=== PATIENT | female | born 1980 | race Caucasian/White ===

== ENCOUNTER 2019-07-08 13:20 | Day surgery (SDC) | payer OTHER, SELFPAY ==
[2019-07-01 07:26] VITALS: BMI 28.2
[2019-07-08] VITALS (16 sets, daily range): BP systolic 91–124; BP diastolic 46–78; PULSE 19–124; RESP 8–20; TEMP 36.2–36.8; O2SAT 97–100; BMI 27.1
--- NOTE | 2019-07-08 | DI.RAD.S_ITS ---
PROCEDURE: XR LUMBAR SPINE 2-3V INDICATIONS: L5/S1 microdiscectomy TECHNIQUE: AP and lateral intraoperative fluoroscopic views of the lumbar spine were acquired. COMPARISON: None. FINDINGS: Intraoperative fluoroscopy documents surgical instruments adjacent to the L5-S1 level of the lumbosacral spine. IMPRESSION: Intraoperative fluoroscopy documents surgical instruments adjacent to the L5-S1 level of the lumbosacral spine. Please see referring provider's operative report for procedural details. Dictated by: Ezequiel West M.D. on 07/08/2019 at 18:16 Approved by: Ezequiel West M.D. on 07/08/2019 at 18:19
[2019-07-08] MEDS: LACTATED RINGERS 1,000 ML 42 ML IV ×3 (14:32→18:33)
--- NOTE | 2019-07-08 14:52 | PM.PREOP ---
Pre-operative Note Interval Note History & Physical reviewed/Exam performed by Physician: Yes Changes to H&P: No
[2019-07-08] MEDS: CEFAZOLIN 2 GM/100 ML FROZ.PIGGY IV (15:18)
[2019-07-08] MEDS: methylPREDNISolone acet DEPO 40 MG/ML VIAL INJ (15:46)
[2019-07-08] MEDS: BUPIVACAINE 0.25% W/ EPI 30 ML VIAL INJ (15:47)
--- NOTE | 2019-07-08 15:53 | SUR.OPER ---
Prone on spine table, head in foam head support, padded chest and pelvic supports, gel pad at knees, lower legs supported by pillows; nipples, genitalia and toes free of pressure, arms secured on foam padded arm boards at <90 degrees abduction. Tape over blanket at thigh secured to table.
--- NOTE | 2019-07-08 16:36 | P.OP_ITS ---
Operative Date/Time/Diagnoses Date of procedure: 07/08/19 Time of procedure: 15:34 Pre-op diagnosis: 1. L5-S1 disc herniation 2. Lumbar radiculopathy Post-op diagnosis: same Procedure & Clinicians Procedure: 1. L5-S1 right microdiscectomy 2. Utilization of microsurgical technique and operating microscope Same procedure as scheduled: Yes Indications: Patient has been having chronic back pain and worsening lumbar radiculopathy. Patient failed multiple conservative management with worsening pain weakness and numbness in her lower extremity. Patient has been having difficulty performing activity of daily living. After discussing risks benefits of treatment options, patient elected proceed with surgery. Surgeon: Maria R Bolden Forensic Chemist: Supriya Peters'Brien Click Yes if Unassisted: No Anesthesia Type: General Operative Notes Closure Type: primary Specimen(s): none sent Estimated Blood Loss (mL): 10 Blood products transfused: none Procedure in detail: Patient was seen in the preoperative area. Risks and benefits of the surgery was discussed with the patient. Informed consent was obtained from the patient and placed in the chart. Surgical site was marked. Patient was taken to the operative room. General anesthesia was administered. Prophylactic antibiotic was given to the patient less than 30 min before the incision was made. Patient was placed into a prone position on the Rolf table. Patient's back was then prepped and draped in the sterile fashion. Time- out was performed at this time. Using AP and lateral C-arm imaging the interval between L5-S1 was identified and marked on patient's back. A 1 inch incision 1 in from midline was made on the right side. The fascia was incised in line with skin incision. Globus MARS retractors was placed inside the incision and docked onto the L5 lamina. Using microsurgical technique and operating microscope, a L5 laminotomy was performed using a Kerrison rongeur. Liagamentum flavum was resected at the site of the laminotomy. The disc space at L5-S1 was identified. Microdiscectomy was performed by incising the annulus with #11 blade. Microcurettes and pituitary was used to removed herniated disc fragments of disc from the epidural space. After the microdiskectomy was completed, the area medial lateral superior and inferior to the area of the microdiskectomy was inspected and explored using a micro curette. No other impinging structure was identified. The wound was then irrigated with sterile normal saline. 40 mg Depo-Medrol was placed into the epidural space. The deep fascia was closed with 1-0 Vicryl. The subcutaneous tissue was closed with 2-0 Vicryl. The skin was closed with 4-0 Monocryl. Patient tolerated the procedure well. There were no complications. Patient was transferred recovery room in stable condition. Complications: none Condition: stable Disposition: same day surgery Plan for aftercare: Discharge to home
[2019-07-08] MEDS: hydrOXYzine 50 MG/ML INJ 25 MG IM (16:59)
[2019-07-08] MEDS: HYDROMORPHONE 2 MG INJ 0.5 MG IV ×4 (17:02→18:11)
[2019-07-08] MEDS: LORazepam 2 MG/ML INJ 0.5 MG IV ×2 (17:17→17:36)
[2019-07-08] MEDS: MEPERIDINE 50 MG/ML INJ 25 MG IV (17:22)
[2019-07-08] MEDS: FAMOTIDINE 20 MG/50 ML PIGGYBACK 200 MG IV (17:35)
[2019-07-08] MEDS: KETOROLAC 30 MG/ML VIAL IV (18:29)
[2019-07-08] MEDS: ACETAMINOPHEN IV 1,000 MG/100 ML VIAL 400 MG IV (18:32)
[2019-07-08] MEDS: OXYCODONE IR 5 MG TABLET PO (18:42)
--- NOTE | 2019-07-08 18:43 | SUR.PHASEI ---
Late entry: PACU post op note--Patient arrived to PACU arousable by loud voice. Patient moaning complaining of pain 9/10 pain in mid low back and bilateral hips. Medicated with Fentanyl on arrival by Dr. Marcum. Pain continued. Medicated with Vistaril and Dilaudid per orders. Patient anxious and feeling pain in abdomen, possibly heartburn per patient. Medicated with Demerol and Ativan for shakes and spasm pain in back. Denied any nausea. VSS, O2 sats WNL. Dr. Bolden notified regarding patients level of pain post op. Possible admit if does not meet criteria for discharge to home. Verbal handoff report given to Elijah Del Rio, application development director UPSETTER HELPER.
--- NOTE | 2019-07-08 18:44 | SUR.PHASEI ---
Late entry - see times from doctor's documentation. Dr Bolden notified of patient's pain level 6-8 in both back and stomach. VSS, deep breathing for pain control; orders written to admit patient. Spoke with Dr. Baires regarding meds to help with pain control. See emar for meds ordered and given. 184 Patient currently visiting with as he is going to go home. patient rates pain at 6/10 in both areas. No nausea, pudding and water given prior to PO rx.
--- NOTE | 2019-07-08 18:50 | SUR.PHASEI ---
report called to LV whaley in AC. Patient currently calm, resp unlabored, not needing to deep breath, continues eating pudding. Back dressing unchanged. Skin warm and dry.
--- NOTE | 2019-07-08 18:50 | SUR.PHASEI ---
Late entry: Dr. Baires assessed patients pain level and ordered medication to treat pain, anxiety, and stomach discomfort. Patient responding slowly to pain medication treatment.
--- NOTE | 2019-07-08 19:11 | SUR.PHASEI ---
1853 to room 213. Transferred into bed with assist. facial grimace and moan present when going over bumps and upon transfer until she was repositioned into the bed. became calm when settled, spouse at bedside. Resp unlabored, skin warm and dry. Clothing bag and glasses to room with patient. SCDs on.
--- NOTE | 2019-07-08 19:26 | SUR.PHASEI ---
1748 Patient moaning intermittently, deep breathing to deal with pain. will medicate, pt. lying in position of comfort for her. Skin warm and dry, resp unlabored, Good strength, motion, sensation in LE.
[2019-07-08] MEDS: LACTATED RINGERS 1,000 ML 75 ML IV (20:39)
--- NOTE | 2019-07-08 20:49 | PC.NURSE ---
PATIENT DREW. GENERAL DIET WITHOUT NAUSEA,STARTED ON ORAL PAIN MEDS.IV NOW HL, AMBULATING IN HALLS SBA WITH HYDRODYNAMICS TEACHER STEADY ON FEET.
[2019-07-09] MEDS: OXYCODONE IR 10 MG TABLET PO (00:36)
--- NOTE | 2019-07-09 00:45 | PC.NURSE ---
Addendum entered by Alma Vasquez R.N. 07/09/19 05:39: States she was able to sleep for several hours. Pain 5/10 but much better than earlier; medicated with Oxycodone and ice applied. No new drainage noted. Original Note: Patient is alert and oriented. Breath sounds CTA with RA sat of 98%. HRR. Denies nausea. BT present but denies flatus. SBA when out of bed to bathroom and voiding without dysuria, frequency or urgency. Dressing to back intact with small amount serosanguinous drainage noted. Complains of 7/10 crampy/achy back pain so medicated with Oxycodone and ice applied. CMS is intact. Able to move self in bed. Refusing SCD's; educated on risks of not wearing but still declines so reminded to ankle wave when awake. Fall risk score is low.
[2019-07-09 05:30] VITALS: BP 114/58; PULSE 77; RESP 18; TEMP 36.4; O2SAT 98
[2019-07-09] MEDS: OXYCODONE IR 5 MG TABLET PO ×3 (05:34→11:39)
[2019-07-09] MEDS: SODIUM CHLORIDE 0.9% FLUSH 10 ML IV ×2 (05:36→09:44)
[2019-07-09 08:00] VITALS: BP 103/52; PULSE 80; RESP 16; TEMP 37; O2SAT 98
--- NOTE | 2019-07-09 10:26 | PM.DS.1 ---
History of Present Illness Date Patient Seen: 07/09/19 Time Patient Seen: 10:27 Chief complaint: [id number] Narrative: Hospital day 2, postop day 1 following right L5-S1 micro diskectomy by Dr. Bolden. Patient was to of gone home after surgery yesterday but was having increased pain and kept overnight. Pain has been controlled with oxycodone 5-10 mg p.o.. She has been up out of bed to bathroom without difficulty. Her preoperative leg symptoms have resolved. She plans to be home with her helping her. Patient feels she is ready to be discharged home today. Discharge Providers Discharge Date: 07/09/19 Consults: 07/09/19 08:46 Consult to Physical Therapy Evaluate & Treat Comment: Postop L5-S1 micro diskectomy. Clear to go home. Physician Instructions: Evaluate and Treat Discharge provider: Leonid La PA-C Summary Discharge Diagnosis: Status post right L5-S1 microdiskectomy Hospital Course: Patient brought to hospital on 08/08/2019 for above noted surgery. She had increased pain after surgery and was kept overnight for observation. Patient doing well on postop day 1 with good pain control. Discharged home on postop day 1. Status at Discharge Cognitive/behavioral status at discharge: oriented Functional status at discharge: uses cane/walker Overall status at discharge: patient is progressing back to baseline Time Spent with Patient Less than 30 minutes Exam Vital Signs (past 8 hours): - 07/09/19 05:30 07/09/19 08:00 Temperature 97.6 F 98.6 F Pulse Rate 77 80 Respiratory Rate 18 16 Blood Pressure 114/58 L 103/52 L Pulse Oximetry 98 98 Oxygen Delivery Method Room Air Oxygen Flow Rate 0 Narrative Exam Narrative: Alert, oriented no acute distress resting in bed. Back. Dressing has serosanguineous drainage. No signs of infection or inflammation. Legs. No calf pain or swelling. Pulses symmetrical. Good sensation to both legs. Good strength on foot dorsiflexion plantar flexion. Discharge Plan Discharge Plan Patient Disposition: Home Discharge comment: She has prescription for oxycodone. Patient to avoid excessive bending or twisting of lumbar spine. Ambulate as tolerated. No lifting or carrying more than 5-10 lb. Discharge Med Rec/Prescriptions Prescriptions: New oxycodone 5 mg capsule 5 mg PO Q4-6H PRN (Reason: pain) Qty: 30 RF: 0 hydroxyzine HCl 25 mg tablet 25 mg PO TID PRN (Reason: muscle spasms) Qty: 20 RF: 0 Continued ranitidine HCl [Zantac 75] 75 mg Tablet 75 mg PO PRN PRN (Reason: Gastric Reflux) RF: 0 Discharge Orders: Discharge (Order); Ordered 07/09/19 Ordered By: Leonid La Provider Discharge Instructions Diet: Diet as Tolerated and Regular Activity: Limit bending and twisting lumbar spine. Ambulate as tolerated. Use walker as needed. Cold/Heat Therapy: Cold pack to lumbar area if needed. Skin/Wound/Dressing Care Report to your healthcare provider any signs of infection, such as:: chills, fever, night sweats, increased pain, unusual drainage and unusual redness Dressing: Keep dressing clean and dry Keep dressing/wound covered to shower for 2 weeks May remove dressing in 5 days and continue to cover incision to shower for total 2 weeks Visit Report/Discharge Packet Instructions: DI for Microdiscectomy Stand Alone Forms: Surgery Discharge Discharge Data Attending Provider: Maria R Bolden VTE Deep Vein Thrombosis/Pulmonary Embolism Present on Admission: No
--- NOTE | 2019-07-09 10:44 | P.PN_ITS ---
Subjective Date Patient Seen: 07/09/19 Time Patient Seen: 10:41 Interval history: Hospital day 3, postop day 1 following left arm [place] fracture ulna with the ORIF by Dr. Chavez yesterday. He is remained stable postoperatively. He is to be nonweightbearing to his left arm. Arm is in postop brace and sling. Using oxycodone for pain. He is being followed by hospitalist. Exam Vital Signs (past 8 hours): - 07/09/19 05:30 07/09/19 08:00 Temperature 97.6 F 98.6 F Pulse Rate 77 80 Respiratory Rate 18 16 Blood Pressure 114/58 L 103/52 L Pulse Oximetry 98 98 Oxygen Delivery Method Room Air Oxygen Flow Rate 0 Narrative Exam Narrative: Alert, oriented in no acute distress sitting in chair. Left arm. Arm in sling. There is today postop long-arm brace in place. Mild swelling of his hand. Good blanching and sensation of fingers. Assessment & Plan Post-op Postoperative Procedures Operation Date: 07/08/19 15:15 Actual Procedures Side Surgeon p L5-S1 microdiscectomy Right Maria R Bolden MD Plan: Will obtain left forearm for x-ray today to check fracture position. He will remain in his postop splint and sling for 2 weeks. He will need follow up appointment with Dr. Chavez an [facility] office in 2 weeks for dressing change and suture removal and x-ray. He does have a laceration to his left forehead and he could have sutures removed from his PCP in 7-10 days. Discharge pending clearance by hospitalist. Quality VTE Deep Vein Thrombosis/Pulmonary Embolism Present on Admission: No
--- NOTE | 2019-07-09 11:15 | CM.DANOTE ---
DCP: Case received, EMR reviewed and met with patient. Introduced self and role. Was able to converse with patient in her room and receive baseline health information. DCP assessment completed with information currently available. Patient is a 39 year old female who admitted yesterday afternoon to the care of the orthopedic team. PCP: Dr. Vargas at [facility]. Payer: confirmed: [employer]. Patient came to the hospital for a surgical procedure. She had L5-S1 Microdiscectomy. Patient has had a history of chronic back pain. Met with patient in her room. She was sitting up in bed, alert and oriented. She mentioned that she had already been ambulating, and would not need any P.T. She resides in [place] with her spouse Juni. She has 2 children. Patient is currently employed with [employer]. P: Patient has discharge orders to go home today, with support of spouse. Tracy Franks RN/Yard Inspector
--- NOTE | 2019-07-09 11:49 | PC.NURSE ---
Pt dressed and ready for discharge home with Spouse. Pt given 1 Oxycodone at 1140 for 5/10 pain. Reviewed d/c info, discussed d/c meds, time of last dose, reviewed back precautions, s/s of stroke and follow up. Pt already has prescriptions filled at home. Pt denies further questions and was taken out to pov via w/c by MEDIA LAW FACULTY MEMBER with Spouse and all belongings.
== END 2019-07-09 11:52 | disposition home or self-care (01) ==
LOC: OR 16:37 → AC 18:24
PROVIDERS: Visit Provider Orthopaedic Surgery Orthopaedic Surgery of the Spine
PROC: (CPT 63030; principal; 2019-07-08 15:15)
DX: M51.16 Intervertebral disc disorders with radiculopathy, lumbar region (principal)
CPT/HCPCS: 63030; 72100; 76000; J0131; J0690; J1030; J1100; J1170; J1885; J2060; J2175; J2405; J2704; J2765; J3010; J3410